=== PATIENT | male | born 1980 | race Caucasian/White ===

== ENCOUNTER 2016-12-26 11:36 | Emergency (ER) | payer OTHER ==
--- NOTE | ~2016-12-26 | CR181 ---
[facility] A Service of [facility] & [facility] RADIOLOGY TEXT RESULTS PATIENT: MARIALUISA MAR LOCATION: CFTX : 82 UNIT #: [id number] AGE: [address]: Gabby Mccabe APRN SEX: M ORDER DR: [id number] [facility] [address] [place], [place] [address] [id number] MR#: [id number] Acc #: [id number] NAME: MARIALUISA MAR. : 1980 SEX: M STUDY DATE/TIME: 12/26/2016 11:57 UNIT: [facility] ROOM: STUDY DESCRIPTION: CR Lumbar Spine 2 or 3 Views Attending Physician: Gabby Mccabe A.P.R.N. Ordering Physician: Ed Gonsalo Kapoor M.D. Primary Care Physician: No Primary Care Physician MEDICAL IMAGING REPORT This report is preliminary unless electronic signature is present EXAM Lumbar spine three-view series INDICATIONS Low back pain for 4 days. FINDINGS AP and lateral projections of the lumbar segment show good mineralization of both anterior and posterior elements. They are all anatomically normal without indication of fracture, dislocation, or malignant change of a sclerotic or lytic type. There is no congenital defect noted. The sacroiliac joints are normal. IMPRESSION Normal lumbar spine. Dictated by... Jeffrey Sawyer M.D. THIS IS AN ELECTRONICALLY VERIFIED REPORT Jeffrey Sawyer M.D. at 12/26/2016 4:35 PM CARA/aron TD: 12/26/2016 14:50 JOB #: [id number] MEDICAL IMAGING REPORT COPY
[~2016-12-26 11:36] MED LIST: ATACAND HCT 16/1 TAB PO; ATACAND PO; ATIVAN PO; IBUPROFEN800 MG PO; LORTAB 10/500 T1 TAB PO; ULTRAM PO
== END 2016-12-26 13:38 | disposition home or self-care (01) ==
LOC: CFTX 11:36
DX: M54.5 Low back pain (principal); I10 Essential (primary) hypertension; F41.8 Other specified anxiety disorders; F17.210 Nicotine dependence, cigarettes, uncomplicated
CPT/HCPCS: 72100; 99283; J1885

== ENCOUNTER 2017-01-03 15:36 | Emergency (ER) | payer OTHER | END 2017-01-03 16:55 | disposition home or self-care (01) | LOC: CFTX 15:36 | DX: M54.5 Low back pain (principal); F17.210 Nicotine dependence, cigarettes, uncomplicated | CPT/HCPCS: 96372; 99283; J1885 ==